=== PATIENT | female | born 1950 | race Caucasian/White ===

== ENCOUNTER 2019-05-19 15:14 | Outpatient (REF) | payer MEDICARE, SELFPAY ==
[2019-05-19 19:37] LABS: Calculated LDL 98 mg/dL; Cholesterol 180 mg/dL (<200); HDL Cholesterol 55 mg/dL (40-60); TSH 2.81 uIU/mL (0.36-3.74); Triglyceride 135 mg/dL (<150)
== END 2019-05-19 15:34 ==
LOC: NCHCN 15:14
PROVIDERS: PCP Physician Assistant Medical; Visit Provider Nurse Practitioner Family
DX: E03.9 Hypothyroidism, unspecified (principal); Z13.6 Encounter for screening for cardiovascular disorders
CPT/HCPCS: 80061; 84443

== ENCOUNTER 2020-05-25 20:36 | Outpatient (REF) | payer OTHER, SELFPAY ==
[2020-05-25 20:01] LABS: TSH 1.75 uIU/mL (0.36-3.74)
== END 2020-05-25 20:56 ==
LOC: NCHCN 20:36
PROVIDERS: PCP Physician Assistant Medical; Visit Provider Nurse Practitioner Family
DX: E03.9 Hypothyroidism, unspecified (principal)
CPT/HCPCS: 84443

== ENCOUNTER 2021-05-26 14:42 | Outpatient (REF) | payer OTHER, SELFPAY ==
[2021-05-26 19:46] LABS: ALT 14 U/L (14-59); AST 21 U/L (15-37); Albumin 3.8 g/dL (3.4-5.0); Alkaline Phosphatase 72 U/L (46-116); Anion Gap 9.1 mmol/L (3-11); BUN 14 mg/dL (7-18); Bilirubin, Total 0.4 mg/dL (0.2-1.0); CO2 27.9 mmol/L (21.0-32.0); CREATININE 0.9 mg/dL (0.55-1.02); Calcium 9.1 mg/dL (8.5-10.1); Calculated LDL 100 mg/dL (<100); Chloride 105 mmol/L (98-107); Cholesterol 182 mg/dL (<200); Glucose 92 mg/dL (74-106); HDL Cholesterol 60 mg/dL (40-60); Potassium 4.4 mmol/L (3.5-5.1); Sodium 142 mmol/L (136-145); TSH 2.42 uIU/mL (0.36-3.74); Total Protein 7.2 g/dL (6.4-8.2); Triglyceride 112 mg/dL (<150)
== END 2021-05-26 14:43 | disposition home or self-care (01) ==
LOC: NCHCN 14:42
PROVIDERS: PCP Physician Assistant Medical; Visit Provider Nurse Practitioner Family
DX: E03.9 Hypothyroidism, unspecified (principal); Z13.6 Encounter for screening for cardiovascular disorders
CPT/HCPCS: 80053; 80061; 84443

== ENCOUNTER 2022-05-31 11:25 | Outpatient (REF) | payer MEDICARE, SELFPAY ==
[2022-05-31 20:21] LABS: BUN 19 mg/dL (7-18); CREATININE 0.9 mg/dL (0.55-1.02); Calcium 9.3 mg/dL (8.5-10.1); Chloride 102 mmol/L (98-107); Estimated GFR 68.77 (mL/min/1.73m2); Glucose 98 mg/dL (74-106); Potassium 4.3 mmol/L (3.5-5.1); Sodium 136 mmol/L (136-145); TSH 1.44 uIU/mL (0.36-3.74)
== END 2022-05-31 11:26 | disposition home or self-care (01) ==
LOC: NCHCN 11:25
PROVIDERS: PCP Physician Assistant Medical; Visit Provider Nurse Practitioner Family
DX: E03.9 Hypothyroidism, unspecified (principal)
CPT/HCPCS: 80048; 84443

== ENCOUNTER 2023-05-30 14:42 | Outpatient (REF) | payer MEDICARE, SELFPAY ==
--- OUTSIDE RECORDS SUMMARY | 2023-05-30 14:49 | XMS_ITS | Continuity of Care Document ---
Author Name Unknown Organization [facility] Address [address] [place] [address] Care Team Providers Care Med Surg Rn Name Role Phone Maryanne Pimentel Primary Care Physician Encounter [facility] Date(s): 06/07/22 - 06/07/[address] [id number] Discharge Disposition: Home or Self Care Attending Physician: Maryanne Pimentel FIELD OBSERVER Admitting Physician: Maryanne Pimentel NP Referring Physician: Maryanne Pimentel FIELD OBSERVER Social History Social History Type Response Sex Female Patient Care team information Personnel Name: Maryanne Pimentel FIELD OBSERVER Address: Address: [address] [place] [address]
[2023-05-30 20:14] LABS: Anion Gap 7.6 mmol/L (3-11); BUN 18 mg/dL (7-18); CO2 27.4 mmol/L (21.0-32.0); CREATININE 0.8 mg/dL (0.55-1.02); Calcium 9.3 mg/dL (8.5-10.1); Chloride 106 mmol/L (98-107); Estimated GFR 78.72 (mL/min/1.73m2); FREE T4 1.18 ng/dL (0.76-1.46); Glucose 99 mg/dL (74-106); Potassium 4.1 mmol/L (3.5-5.1); Sodium 141 mmol/L (136-145); TSH 1.62 uIU/mL (0.36-3.74)
== END 2023-05-30 14:43 | disposition home or self-care (01) ==
LOC: NCHCN 14:42
PROVIDERS: PCP Physician Assistant Medical; Visit Provider Nurse Practitioner Family
DX: E03.9 Hypothyroidism, unspecified (principal)
CPT/HCPCS: 80048; 84439; 84443

== ENCOUNTER 2024-05-01 16:53 | Emergency (ER) | payer MEDICARE, SELFPAY ==
[2024-05-01] VITALS (21 sets, daily range): BP systolic 124–150; BP diastolic 71–89; PULSE 59–77; RESP 10–19; TEMP 36.3–36.7; O2SAT 93–96
--- NOTE | 2024-05-01 16:45 | RT.EKG_ITS ---
APPROVED REPORT Exam: Resting ECG Reason for Exam: Dizzy Patient Location: E HR:72 bpm ECG Measurements Heart Rate 72 AXIS GA 94 P 12 QRSd 86 QRS 49 QT 378 T 0 QTc 412 Conclusion Sinus rhythm...normal P axis, V-rate 60- 99
--- NOTE | 2024-05-01 17:00 | DI.CT_ITS ---
Exam(s) CT HEAD SINUS WO EXAM: CT HEAD SINUS WO CLINICAL HISTORY: frontal head and sinus pain. TECHNIQUE: Imaging Protocol: Axial computed tomography images with coronal and sagittal reformatted images were created and reviewed COMPARISON: CT CT SINUS WO CONTRAST from 06/07/2022 FINDINGS: CT Head: Ventricles and Extra axial spaces: Normal in size and morphology for the patient's age. Hemorrhage: None. Cerebral parenchyma: Normal. Midline shift: None. Brainstem/Cerebellum: Normal. Calvarium: Normal. Soft Tissues: Unremarkable. CT Face: Facial Bones: No fracture is noted in facial bones. Sinuses: Frontal sinuses: Completely opacified. Prior exam showed some air within the left frontal sinus. Ethmoid sinuses: Completely opacified without change from prior. Maxillary sinuses: Significant circumferential mucosal thickening. Improvement in aeration both maxi llary sinuses compared with the prior exam. Sphenoid sinuses: Mucous retention in the sphenoid sinuses with some improvement from prior. Nasal cavity: Mucosal thickening and lobulated projections consistent with polyps. No significant ch taisha from prior. Mastoids: Unremarkable. Globes, extraocular muscles, optic nerves and retrobulbar fat: Normal. Upper aerodigestive tract: Normal. Mandible and bilateral temporomandibular joints: Normal. Soft tissues: Normal. IMPRESSION: 1. No acute intracranial process. 2. Severe chronic pansinusitis. There has been some interval improvement in the degree of sinus opac ification involving the maxillary sinuses. No evidence of bony destruction or acute abnormality. RADIATION DOSE DELIVERED: Total DLP DATA REPOSITORY: All CT scans at this facility are submitted to the National Radiology Data Registry (NRDR) Dose Index Registry (DIR) with the [employer] (A[employer]). RADIATION OPTIMIZATION: All CT scans at this facility use at least one of these dose optimization te chniques: automated exposure control; mA and/or kV adjustment per patient size (includes targeted exa ms where dose is matched to clinical indication); or iterative reconstruction.
--- NOTE | 2024-05-01 17:15 | ED.GENADUL_ITS ---
Discharge Plan Disposition Patient Disposition: Home Condition: Stable Discharge Details Clinical Impression: Fullness in head, Dizziness, Sinusitis Primary Care Provider: Eliane Celaya ED Provider: Con Jo Home Meds and New Rx's Prescriptions: New amoxicillin-pot clavulanate 875-125 mg tablet 1 tab PO BID Qty: 19 0RF Continued albuterol sulfate [ProAir HFA] 90 mcg/actuation HFA aerosol inhaler 2 puff inhalation Q4H PRN fluticasone propionate [Flonase Allergy Relief] 50 mcg/actuation spray,suspension 1 spray intranasal DIRECTED Rx Instructions: administer into each nostril levothyroxine 75 mcg capsule 75 mcg PO DAILY fluticasone propionate [Flovent HFA] 110 mcg/actuation HFA aerosol inhaler 1 puff inhalation BID omeprazole 20 mg capsule,delayed release(DR/EC) 20 mg PO DAILY Discharge Instructions Additional Instructions: Your CAT scan showed evidence of sinusitis. If not improving in a week follow-up with your primary care provider If you feel more ill, have severe worsening pain or new symptoms such as fevers, chest pain or difficulty breathing return to the emergency department for reevaluation HPI General Mode of arrival: ambulatory . Date/Time Provider Initiated Documentation: 05/01/24 16:55 . Limitations to Documentation: no limitations . Information obtained by: patient . History of Present Illness 73 year old F presents to the emergency department with the chief complaint of head fullness, described as moderate, Quality is described as aching, Patient started e xperiencing this week(s) (2) and it has been constant. No relieving factors improve symptom(s), No exacerbating factors reported . Patient notes other (head fullness); denies chest pain, fever/chills and shortness of breath. Patient did receive the following treatments prior to arrival, none Related Data Home Medications ?Medication ?Instructions ?Recorded ?Confirmed albuterol sulfate 90 mcg/actuation 2 puff inhalation Q4H PRN 06/01/22 05/01/24 aerosol inhaler (ProAir HFA) fluticasone propionate 110 1 puff inhalation BID 06/01/22 05/01/24 mcg/actuation HFA aerosol inhaler (Flovent HFA) fluticasone propionate 50 1 spray intranasal DIRECTED 12/22/22 11/21/24 mcg/actuation nasal spray,suspension (Flonase Allergy Relief) levothyroxine 75 mcg capsule 75 mcg PO DAILY 06/01/22 05/01/24 amoxicillin 875 mg-potassium 1 tab PO BID #19 tabs 05/01/24 clavulanate 125 mg tablet omeprazole 20 mg capsule,delayed 20 mg PO DAILY 05/01/24 05/01/24 release Previous Rx's ?Medication ?Instructions ?Recorded amoxicillin 875 mg-potassium 1 tab PO BID #19 tabs 05/01/24 clavulanate 125 mg tablet Allergies Allergy/AdvReac Type Severity Reaction Status Date / Time pneumococcal vaccine (From AdvReac Severe Swelling/Ed Verified 05/01/24 17:01 Pneumovax-23) endy General Stated Complaint: GenMedical BILLY: 3 Review of Systems All systems reviewed & are unremarkable except as noted in HPI and below Constitutional Constitutional: Denies chills, Denies fever(s) and Denies weakness ENT Ears, Nose, Mouth, and Throat: Reports dizziness Cardiovascular Cardiovascular: Denies chest pain, Denies syncope and Denies dyspnea Respiratory Respiratory: Denies cough and Denies dyspnea Gastrointestinal Gastrointestinal: Denies abdominal pain, Denies nausea and Denies vomiting Integumentary/Breasts Skin/Breast: Denies rash Neurologic Neurologic: Reports dizziness, Denies syncope and Denies weakness Exam Const General: no acute distress Orientation: alert [facility] Head: normal to inspection Ears: external ears normal General nose exam: external nose normal Mouth: moist mucous membranes Eyes General: appearance normal, both eyes and all related structures Neck Neck: normal visual inspection Resp Effort & Inspection: normal respiratory effort and able to speak in complete sentences Cardio Rate: regular rate Skin General skin exam: no rashes or lesions noted Neuro General: patient alert and patient oriented x3 Cranial Nerves: CN's II-XI intact bilaterally Cognition: normal cognition Speech: speech normal Gait: normal gait Extrem General: normal to inspection Psych Mental Status: mental status grossly normal Course Vital Signs Vital signs: Vital Signs Temperature 36.3 C L 05/01/24 16:54 Pulse 77 05/01/24 16:54 Respiratory Rate 14 05/01/24 16:54 Blood Pressure 150/85 H 05/01/24 16:54 Pulse Oximetry 96 05/01/24 16:54 Temperature 36.3 C L 05/01/24 16:54 Pulse 77 05/01/24 16:54 Respiratory Rate 14 05/01/24 16:54 Blood Pressure 150/85 H 05/01/24 16:54 Blood Pressure Position Sitting 05/01/24 16:54 Pulse Oximetry 96 05/01/24 16:54 Oxygen Delivery Method Room Air 05/01/24 16:54 Oxygen Flow Rate 0 05/01/24 16:54 Pain Level 0 05/01/24 16:54 Medical Decision Making 73-year-old female with history of hypothyroidism comes in with 2 weeks of feeling of fullness in her frontal head and face. Also has felt intermittent unsteadiness. Denies any falls, chest pain, difficulty breathing, vomiting. She is amatory with a normal gait on arrival, alert and oriented x 4 speaking clearly. She has no focal neurological deficits and normal sensation. Cranial nerves II through XII are intact. She does have tenderness over the axillary sinuses. Her symptoms of the anterior face and head fullness could be from sinusitis, given her age and complaints of feeling unsteady will check a CT head although my suspicion for central stroke is very low, will also check CBC, CMP and that she has no chest pain also check troponins. No neck pain or chest or back pain so doubt entities such as dissection. Labs unremarkable, she does symptoms for 2 weeks with do not feel delta troponin is indicated. Her CT of her brain was unremarkable, her CT sinuses did not show evidence of chronic sinusitis. Given her symptoms I will initiate antibiotics with Augmentin. She has been ambulating and feels improved, advised to follow- up with her PCP and return precautions given Differential Diagnosis Differential Diagnosis: Sinusitis, vertigo Lab Data Lab results reviewed: Yes I reviewed the patient's lab results. ECG Data Attestation: I personally reviewed and interpreted this ECG (s) as follows: Prior ECG tracings: not available for review Interpretation: sinus rate of 72 pr 94 no stemi Quality:SDOH Health Related Social Needs: No Data to Display PFSH All Active Problems (Updated 05/01/24 @ 19:03 by Con Jo MD) Sinusitis (Acute) Dizziness (Acute) Fullness in head (Acute) Nasal congestion (Acute) Medical History (Updated 05/01/24 @ 19:03 by Con Jo MD) Eczema Asthma GERD (gastroesophageal reflux disease) Hypothyroidism Insomnia Sinus drainage Sinusitis Nasal polyposis Surgical History (Updated 06/01/22 @ 13:34 by Ysabel Greer) H/O: hysterectomy Social History Smoking/Tobacco Use Status: Never Smoking risk assessment performed?: Yes Alcohol Intake: never Substance use type: does not use Do you feel safe at home: Yes Do you feel safe in your relationship?: Yes
[2024-05-01 17:34] LABS: Bilirubin Negative (Negative); Blood Negative (Negative); Clarity Clear (Clear); Glucose Negative (Negative); Ketones Negative (Negative); Leukocyte Esterase Small (Negative); Nitrite Negative (Negative); Urobilinogen 0.2 mg/dL (Up to 0.2); pH 5.5 (5-8)
[2024-05-01 17:34] LABS: Abs Immature Grans 0.02 10^3/uL (0.0-0.06); Absolute Basophil Count 0.06 10^3/uL (0.0-0.2); Absolute Eosinophil Count 0.51 10^3/uL (0.0-0.7); Absolute Lymphocyte Count 1.75 10^3/uL (1.2-3.4); Absolute Monocyte Count 0.78 10^3/uL (0.1-0.8); Absolute Neutrophil Count 5.57 10^3/uL (1.2-6.7); Basophils % 0.7 %; Eosinophils % 5.9 %; HCT 50.3 % (36.0-46.0); HGB 15.6 g/dL (11.2-15.7); Immature Grans % 0.2 %; Lymphocytes % 20.1 %; MCH 25.3 pg (27.0-33.0); MCV 82 fL (80-95); MPV 9.5 fL (8.0-11.0); Neutrophils % 64.1 %; Platelet Count 257 10^3/uL (130-400); RBC 6.17 10^6/uL (3.93-5.22); RDW 14.6 % (11.7-14.6); RDW-SD 42.7 fL; WBC 8.69 10^3/uL (4.4-10.8)
[2024-05-01 17:45] LABS: PTT Activated 26.2 sec (23.6-32.8); Prothrombin Time 9.9 sec (9.1-11.1)
[2024-05-01 17:46] LABS: Epithelial Cells Few HPF (Negative); RBC Negative HPF (0-2)
[2024-05-01 17:47] LABS: Bacteria Rare HPF (Negative); C & S Indicated? No; Other Cells Rare Transitional (Negative)
[2024-05-01 17:50] LABS: ALT 21 U/L (14-59); AST 16 U/L (15-37); Albumin 3.9 g/dL (3.4-5.0); Alkaline Phosphatase 92 U/L (46-116); Anion Gap 7.4 mmol/L (3-11); BUN 15 mg/dL (7-18); Bilirubin, Total 0.31 mg/dL (0.2-1.0); CO2 29.6 mmol/L (21.0-32.0); CREATININE 0.9 mg/dL (0.55-1.02); Calcium 9.5 mg/dL (8.5-10.1); Chloride 105 mmol/L (98-107); Estimated GFR 67.92 (mL/min/1.73m2); Glucose 127 mg/dL (74-106); Lipase 44 U/L (<78); Magnesium 2.2 mg/dL (1.8-2.4); Potassium 3.6 mmol/L (3.5-5.1); Sodium 142 mmol/L (136-145); Troponin I < 4 ng/L (<or=51)
[2024-05-01 18:01] LABS: Diff Comment RBC Morph Reviewed; Hypochromasia 1+
[2024-05-01 18:02] LABS: Stomatocytes 2+
[2024-05-01 19:11] LABS: Troponin I 4 ng/L (<or=51)
[2024-05-01] MEDS: Amoxicillin 875/Clav. 125 TAB PO (19:24)
== END 2024-05-01 19:42 | disposition home or self-care (01) ==
PROVIDERS: Emergency Provider Emergency Medicine; PCP Physician Assistant Medical
DX: R51.9 Headache, unspecified (principal); R42 Dizziness and giddiness; R11.0 Nausea; J01.40 Acute pansinusitis, unspecified; J32.4 Chronic pansinusitis
CPT/HCPCS: 36415; 80053; 83690; 87637; 93005; 99285; 70450; 70486; 81003; 81015; 83735; 84484; 85025; 85610; 85730; 93010; 99284

== ENCOUNTER 2024-06-23 13:10 | Outpatient (REF) | payer MEDICARE, SELFPAY ==
[2024-06-23 19:17] LABS: HGB 14.8 g/dL (11.2-15.7); MCH 25.3 pg (27.0-33.0); MCHC 31.5 % (32.0-36.0); MCV 80 fL (80-95); MPV 10.4 fL (8.0-11.0); Platelet Count 218 10^3/uL (130-400); RBC 5.85 10^6/uL (3.93-5.22); RDW 14.3 % (11.7-14.6); RDW-SD 41.5 fL
[2024-06-23 19:42] LABS: TSH 3.35 uIU/mL (0.36-3.74)
== END 2024-06-23 13:11 | disposition home or self-care (01) ==
LOC: NCHCN 13:10
PROVIDERS: PCP Physician Assistant Medical; Visit Provider Nurse Practitioner Family
DX: R71.8 Other abnormality of red blood cells (principal); E03.9 Hypothyroidism, unspecified
CPT/HCPCS: 85027; 84443